=== PATIENT | female | born 1980 | race Caucasian/White ===

== ENCOUNTER 2018-02-22 07:17 | Day surgery (SDC) | payer OTHER ==
[2018-02-22] MEDS: BUPIVACAINE 0.25% (MPF) 30 ML INJ INJ
[2018-02-22] MEDS ORDERED: SOD CHLORIDE 0.9% 1,000 ML IV (11:00)
[2018-02-22] MEDS ORDERED: CEFAZOLIN 2 GM/50 ML (PMX) 50 ML IVPB (11:00)
[2018-02-22] MEDS ORDERED: HYDROmorphONE 1 MG/5 ML IV SYRINGE IV ×2 (13:00)
[2018-02-22] MEDS ORDERED: DIPHENHYDRAMINE 50 MG INJ IV (13:00)
[2018-02-22] MEDS ORDERED: FENTAnyl 50 MCG/ML VIAL (13:04)
[2018-02-22] MEDS ORDERED: MIDAZOLAM 1 MG/ML 2 ML INJ (13:04)
[2018-02-22] MEDS ORDERED: BUPIVACAINE 0.25% (MPF) 30 ML INJ (13:29)
[2018-02-22] MEDS ORDERED: LIDOCAINE 2% (SDV) 5 ML INJ (13:52)
[2018-02-22] MEDS ORDERED: PROPOFOL 20 ML (13:52)
[2018-02-22] MEDS ORDERED: ONDANSETRON 4 MG INJ (13:53)
[2018-02-22] MEDS ORDERED: CEFAZOLIN 1 GM INJ (13:53)
[2018-02-22] MEDS ORDERED: HYDROCODONE/APAP (5/325) TAB PO (14:00)
[2018-02-22] MEDS: ONDANSETRON 4 MG INJ IV (14:08)
[2018-02-22] MEDS: MEPERIDINE 25 MG INJ IV (14:08)
[2018-02-22] MEDS: FENTAnyl 50 MCG/ML VIAL IV (14:11)
== END 2018-02-22 15:32 | disposition home or self-care (01) ==
LOC: SDS 07:17
DX: D24.2 Benign neoplasm of left breast (principal)
CPT/HCPCS: 14001; 88307

== ENCOUNTER 2018-07-27 23:41 | Observation (INO) | payer OTHER ==
[2018-07-28] MEDS ORDERED: BISACODYL (EC) 5 MG TAB PO (00:30)
[2018-07-28] MEDS ORDERED: DOCUSATE SODIUM 100 MG CAP PO (00:30)
[2018-07-28] MEDS ORDERED: NACL 0.9% 3 ML SYG IV (00:30)
[2018-07-28] MEDS: morphine 2 MG INJ IV ×4 (00:36→21:19)
[2018-07-28] MEDS: METOCLOPRAMIDE 10 MG INJ IV ×2 (00:37→21:19)
[2018-07-28] MEDS: PIPER-TAZO 3.375 GM IV (PMX) 100 ML IVPB ×5 (00:42→23:05)
[2018-07-28] MEDS: SOD CHLORIDE 0.9% 1,000 ML IV ×3 (00:42→23:05)
[2018-07-28 01:08] LABS: ADD MAN DIFF? NO
[2018-07-28 01:09] LABS: BASOPHILS % 0.3 % (0.0-2.0); EOSINOPHILS # 0.1 10^3/ul (0.0-0.5); EOSINOPHILS % 1.3 % (0.0-7.0); HEMATOCRIT 36.6 % (37.0-47.0); HEMOGLOBIN 12.2 g/dl (12.0-16.0); LYMPHOCYTES # 4.2 10^3/ul (0.8-2.9); LYMPHOCYTES % 48.8 % (15.0-51.0); MEAN CORPUSCULAR HEMOGLOBIN 31.9 pg (29.0-33.0); MEAN CORPUSCULAR HGB CONC 33.3 g/dl (32.0-37.0); MEAN CORPUSCULAR VOLUME 95.6 fl (82.0-101.0); MEAN PLATELET VOLUME 10.4 fl (7.4-10.4); MONOCYTE # 0.6 10^3/ul (0.3-0.9); MONOCYTES % 6.6 % (0.0-11.0); NEUTROPHIL # 3.7 10^3/ul (1.6-7.5); NEUTROPHILS % 42.8 % (39.0-77.0); PLATELET COUNT 254 10^3/UL (140-415); RED BLOOD COUNT 3.83 10^6/ul (4.20-5.40); RED CELL DISTRIBUTION WIDTH 12.6 % (11.5-14.5)
[2018-07-28 01:09] LABS: WHITE BLOOD COUNT 8.6 10^3/ul (4.8-10.8)
[2018-07-28 01:33] LABS: ALANINE AMINOTRANSFERASE 30 IU/L (13-69); ALBUMIN 4.3 g/dl (3.3-4.9); ALBUMIN/GLOBULIN RATIO 1.48; ALKALINE PHOSPHATASE 47 IU/L (42-121); ANION GAP 4 (5-13); ASPARTATE AMINO TRANSFERASE 20 IU/L (15-46); BILIRUBIN,INDIRECT 1.4 mg/dl (0-1.1); BILIRUBIN,TOTAL 1.4 mg/dl (0.2-1.3); BLOOD UREA NITROGEN 11 mg/dl (7-20); CALCIUM 9.1 mg/dl (8.4-10.2); CARBON DIOXIDE 27 mmol/L (21-31); CHLORIDE 108 mmol/L (97-110); CREATININE 0.61 mg/dl (0.44-1.00); Estimated GFR > 60 mL/min (>60); GLUCOSE 93 mg/dl (70-220); MAGNESIUM 1.8 mg/dl (1.7-2.5); POTASSIUM 3.7 mmol/L (3.5-5.1); SODIUM 139 mmol/L (135-144); TOTAL PROTEIN 7.2 g/dl (6.1-8.1)
[2018-07-28] MEDS: ONDANSETRON 4 MG INJ IV ×2 (04:30→15:01)
[2018-07-28 06:44] LABS: CHOL/HDL RATIO 3.2 RATIO; HDL CHOLESTEROL 50 mg/dl (34-82); LDL CHOLESTEROL,CALCULATED 104 mg/dl; TRIGLYCERIDES 49 mg/dl (0-149)
[2018-07-28 06:44] LABS: CHOLESTEROL 164 mg/dl (100-200)
[2018-07-28] MEDS: LORAZEPAM 2 MG INJ IV (15:54)
[2018-07-28] MEDS: ACETAMINOPHEN 325 MG TAB PO (17:36)
[2018-07-29] MEDS: PIPER-TAZO 3.375 GM IV (PMX) 100 ML IVPB (05:31)
[2018-07-29] MEDS: morphine 2 MG INJ IV ×3 (05:33→17:49)
[2018-07-29] MEDS: METOCLOPRAMIDE 10 MG INJ IV ×3 (05:33→17:48)
[2018-07-29] MEDS: SOD CHLORIDE 0.9% 1,000 ML IV ×2 (05:39→10:43)
[2018-07-29 06:10] LABS: ADD MAN DIFF? NO
[2018-07-29 06:13] LABS: BASOPHILS % 0.3 % (0.0-2.0); EOSINOPHILS # 0.1 10^3/ul (0.0-0.5); EOSINOPHILS % 0.8 % (0.0-7.0); HEMATOCRIT 33.7 % (37.0-47.0); HEMOGLOBIN 11.2 g/dl (12.0-16.0); LYMPHOCYTES # 2.4 10^3/ul (0.8-2.9); LYMPHOCYTES % 29.4 % (15.0-51.0); MEAN CORPUSCULAR HEMOGLOBIN 32.1 pg (29.0-33.0); MEAN CORPUSCULAR HGB CONC 33.2 g/dl (32.0-37.0); MEAN CORPUSCULAR VOLUME 96.6 fl (82.0-101.0); MEAN PLATELET VOLUME 10.5 fl (7.4-10.4); MONOCYTE # 0.4 10^3/ul (0.3-0.9); MONOCYTES % 4.9 % (0.0-11.0); NEUTROPHIL # 5.1 10^3/ul (1.6-7.5); NEUTROPHILS % 64.2 % (39.0-77.0); PLATELET COUNT 209 10^3/UL (140-415); RED BLOOD COUNT 3.49 10^6/ul (4.20-5.40); RED CELL DISTRIBUTION WIDTH 12.3 % (11.5-14.5)
[2018-07-29 06:44] LABS: MAGNESIUM 1.8 mg/dl (1.7-2.5)
[2018-07-29 06:59] LABS: ALANINE AMINOTRANSFERASE 33 IU/L (13-69); ALBUMIN 3.8 g/dl (3.3-4.9); ALBUMIN/GLOBULIN RATIO 1.46; ALKALINE PHOSPHATASE 45 IU/L (42-121); ANION GAP 6 (5-13); ASPARTATE AMINO TRANSFERASE 17 IU/L (15-46); BILIRUBIN,INDIRECT 1.9 mg/dl (0-1.1); BILIRUBIN,TOTAL 1.9 mg/dl (0.2-1.3); BLOOD UREA NITROGEN 11 mg/dl (7-20); CALCIUM 8.6 mg/dl (8.4-10.2); CARBON DIOXIDE 20 mmol/L (21-31); CHLORIDE 112 mmol/L (97-110); CREATININE 0.57 mg/dl (0.44-1.00); Estimated GFR > 60 mL/min (>60); GLUCOSE 67 mg/dl (70-220); POTASSIUM 3.8 mmol/L (3.5-5.1); SODIUM 138 mmol/L (135-144); TOTAL PROTEIN 6.4 g/dl (6.1-8.1)
[2018-07-29 08:19] LABS: HEMOGLOBIN A1C 4.9 % (0-5.9)
[2018-07-29 09:44] LABS: HIV 1&2 ANTIBODY NEGATIVE (NEGATIVE)
[2018-07-29 10:15] LABS: ADD UMIC NO; UR ASCORBIC ACID NEGATIVE (NEGATIVE); UR BILIRUBIN (Dip) NEGATIVE (NEGATIVE); UR BLOOD (Dip) NEGATIVE (NEGATIVE); UR CLARITY CLEAR (CLEAR); UR COLOR STRAW (YELLOW); UR GLUCOSE (Dip) NEGATIVE (NEGATIVE); UR KETONES (Dip) 2+ mg/dL (NEGATIVE); UR LEUKOCYTE ESTERASE (Dip) NEGATIVE Leu/ul (NEGATIVE); UR NITRITE (Dip) NEGATIVE (NEGATIVE); UR TOTAL PROTEIN (Dip) NEGATIVE (NEGATIVE); UR UROBILINOGEN (Dip) NEGATIVE (NEGATIVE)
[2018-07-29] MEDS: metroNIDAZOLE 500 MG TAB PO ×3 (10:44→21:49)
[2018-07-29] MEDS: DOXYCYCLINE 100 MG TAB PO ×2 (10:44→21:49)
[2018-07-29] MEDS: CEFTRIAXONE 2 GM/50 ML (PMX) 50 ML IVPB (12:03)
[2018-07-29 19:50] LABS: RAPID PLASMA REAGIN NONREACTIVE (NR)
[2018-07-30] MEDS: morphine 2 MG INJ IV ×2 (00:12→06:20)
[2018-07-30] MEDS: METOCLOPRAMIDE 10 MG INJ IV ×2 (00:12→06:19)
[2018-07-30 05:46] LABS: ADD MAN DIFF? NO
[2018-07-30 05:51] LABS: BASOPHILS % 0.3 % (0.0-2.0); EOSINOPHILS # 0.1 10^3/ul (0.0-0.5); HEMATOCRIT 32.5 % (37.0-47.0); HEMOGLOBIN 11.4 g/dl (12.0-16.0); LYMPHOCYTES # 2.8 10^3/ul (0.8-2.9); LYMPHOCYTES % 48.6 % (15.0-51.0); MEAN CORPUSCULAR HEMOGLOBIN 32.5 pg (29.0-33.0); MEAN CORPUSCULAR HGB CONC 35.1 g/dl (32.0-37.0); MEAN CORPUSCULAR VOLUME 92.6 fl (82.0-101.0); MEAN PLATELET VOLUME 10.5 fl (7.4-10.4); MONOCYTE # 0.4 10^3/ul (0.3-0.9); MONOCYTES % 7.2 % (0.0-11.0); NEUTROPHIL # 2.5 10^3/ul (1.6-7.5); NEUTROPHILS % 42.7 % (39.0-77.0); PLATELET COUNT 206 10^3/UL (140-415); RED BLOOD COUNT 3.51 10^6/ul (4.20-5.40); RED CELL DISTRIBUTION WIDTH 12.2 % (11.5-14.5)
[2018-07-30 05:51] LABS: WHITE BLOOD COUNT 5.8 10^3/ul (4.8-10.8)
[2018-07-30] MEDS: metroNIDAZOLE 500 MG TAB PO (05:58)
[2018-07-30 06:23] LABS: MAGNESIUM 1.7 mg/dl (1.7-2.5)
[2018-07-30 06:23] LABS: PHOSPHORUS 2.8 mg/dl (2.5-4.9)
[2018-07-30 06:25] LABS: ANION GAP 9 (5-13); BLOOD UREA NITROGEN 7 mg/dl (7-20); CALCIUM 8.9 mg/dl (8.4-10.2); CARBON DIOXIDE 22 mmol/L (21-31); CHLORIDE 108 mmol/L (97-110); CREATININE 0.58 mg/dl (0.44-1.00); Estimated GFR > 60 mL/min (>60); GLUCOSE 95 mg/dl (70-220); POTASSIUM 3.5 mmol/L (3.5-5.1); SODIUM 139 mmol/L (135-144)
[2018-07-30 07:34] LABS: ERYTHROCYTE SEDIMENTATION RATE 5 mm/Hr (0-20)
[2018-07-30] MEDS: AMOXICILLIN/CLAV 875 MG TAB PO (10:45)
[2018-07-30] MEDS: IBUPROFEN 600 MG TAB PO (10:45)
== END 2018-07-30 18:30 | disposition home or self-care (01) ==
LOC: PP2 23:41
DX: R10.31 Right lower quadrant pain (principal); E66.3 Overweight; Z68.29 Body mass index [BMI] 29.0-29.9, adult; R82.71 Bacteriuria; Z97.5 Presence of (intrauterine) contraceptive device
CPT/HCPCS: 72195; 74181; 80048; 80053; 80061; 81003; 83036; 83735; 84100; 84703; 85025; 85651; 86592; 86703; 87086; 87591; G0378

== ENCOUNTER 2018-09-17 08:24 | Day surgery (SDC) | payer OTHER ==
[~2018-09-17 08:24] MED LIST: CEFAZOLIN 2 GM/50 ML (PMX) 50 ML IVPB; SOD CHLORIDE 0.9% 1,000 ML IV
[2018-09-17 09:43] LABS: ADD MAN DIFF? NO
[2018-09-17 09:48] LABS: BASOPHILS % 0.6 % (0.0-2.0); EOSINOPHILS # 0.1 10^3/ul (0.0-0.5); EOSINOPHILS % 1.7 % (0.0-7.0); HEMATOCRIT 36.5 % (37.0-47.0); HEMOGLOBIN 12.4 g/dl (12.0-16.0); LYMPHOCYTES # 2.3 10^3/ul (0.8-2.9); LYMPHOCYTES % 42.1 % (15.0-51.0); MEAN CORPUSCULAR HEMOGLOBIN 31.5 pg (29.0-33.0); MEAN CORPUSCULAR VOLUME 92.6 fl (82.0-101.0); MEAN PLATELET VOLUME 10.3 fl (7.4-10.4); MONOCYTE # 0.4 10^3/ul (0.3-0.9); MONOCYTES % 7.1 % (0.0-11.0); NEUTROPHIL # 2.6 10^3/ul (1.6-7.5); NEUTROPHILS % 48.1 % (39.0-77.0); PLATELET COUNT 253 10^3/UL (140-415); RED BLOOD COUNT 3.94 10^6/ul (4.20-5.40); RED CELL DISTRIBUTION WIDTH 12.3 % (11.5-14.5)
[2018-09-17 09:48] LABS: WHITE BLOOD COUNT 5.4 10^3/ul (4.8-10.8)
[2018-09-17 10:06] LABS: ALANINE AMINOTRANSFERASE 50 IU/L (13-69); ALBUMIN 4.8 g/dl (3.3-4.9); ALKALINE PHOSPHATASE 65 IU/L (42-121); ANION GAP 10 (5-13); ASPARTATE AMINO TRANSFERASE 43 IU/L (15-46); BLOOD UREA NITROGEN 17 mg/dl (7-20); CALCIUM 9.5 mg/dl (8.4-10.2); CARBON DIOXIDE 26 mmol/L (21-31); CHLORIDE 107 mmol/L (97-110); Estimated GFR > 60 mL/min (>60); GLUCOSE 108 mg/dl (70-220); POTASSIUM 3.9 mmol/L (3.5-5.1); SODIUM 143 mmol/L (135-144)
[2018-09-17 10:07] LABS: PROTIME 12.3 Sec (11.9-14.9)
[2018-09-17 10:08] LABS: PARTIAL THROMBOPLASTIN TIME 27.7 Sec (23.0-35.0)
[2018-09-17] MEDS ORDERED: MIDAZOLAM 1 MG/ML 2 ML INJ (11:54)
[2018-09-17] MEDS ORDERED: CEFAZOLIN 1 GM INJ (12:45)
[2018-09-17] MEDS ORDERED: NEOSTIGMINE 3 MG/3 ML SYRINGE (12:45)
[2018-09-17] MEDS ORDERED: GLYCOPYRROLATE 0.4 MG INJ (12:45)
[2018-09-17] MEDS ORDERED: PROPOFOL 20 ML (12:45)
[2018-09-17] MEDS ORDERED: ROCURONIUM 50 MG INJ (12:45)
[2018-09-17] MEDS ORDERED: LIDOCAINE 2% (SDV) 5 ML INJ (12:45)
[2018-09-17] MEDS ORDERED: ONDANSETRON 4 MG INJ (12:46)
[2018-09-17] MEDS ORDERED: METOCLOPRAMIDE 10 MG INJ (12:48)
[2018-09-17] MEDS ORDERED: DIPHENHYDRAMINE 50 MG INJ IV (13:00)
[2018-09-17] MEDS ORDERED: FENTAnyl 50 MCG/ML VIAL IV (13:00)
[2018-09-17] MEDS ORDERED: METOCLOPRAMIDE 10 MG INJ IV (13:00)
[2018-09-17] MEDS ORDERED: ONDANSETRON 4 MG INJ IV (13:00)
[2018-09-17] MEDS: KETOROLAC 30 MG INJ IV (13:03)
[2018-09-17] MEDS: HYDROmorphONE 1 MG/5 ML IV SYRINGE IV ×3 (13:03→13:24)
[2018-09-17] MEDS: MEPERIDINE 25 MG INJ IV ×2 (13:11→13:57)
[2018-09-17] MEDS: BUPIVACAINE 0.25% (MPF) 30 ML INJ (13:55)
[2018-09-17] MEDS ORDERED: MEPERIDINE 25 MG INJ IM (14:01)
[2018-09-17] MEDS: HYDROCODONE/APAP (5/325) TAB PO (16:07)
[2018-09-17] MEDS: SOD CHLORIDE 0.45% 1,000 ML IV (19:01)
[2018-09-17] MEDS: morphine 2 MG INJ IV (21:14)
[2018-09-17] MEDS: ONDANSETRON 4 MG INJ IV (21:43)
[2018-09-18] MEDS: morphine 2 MG INJ IV ×2 (01:43→06:00)
[2018-09-18] MEDS: ONDANSETRON 4 MG INJ IV ×3 (01:43→16:45)
[2018-09-18] MEDS: SOD CHLORIDE 0.45% 1,000 ML IV ×2 (02:00→06:00)
[2018-09-18] MEDS: HYDROCODONE/APAP (5/325) TAB PO ×2 (11:35→16:45)
== END 2018-09-18 17:20 | disposition home or self-care (01) ==
LOC: SDS 09-18 17:20 → REC 15:19 → SDS 15:19 → PP2 18:22
DX: K36 Other appendicitis (principal)
CPT/HCPCS: 44970; 80053; 84703; 85025; 85610; 85730; 88304